=== PATIENT | male | born 1950 | race Caucasian/White ===

== ENCOUNTER → 2021-06-26 10:26 | Outpatient (CLI) | payer OTHER, SELFPAY ==
[2021-06-26 10:36] LABS: Microscopic, Urine URINE MICROSCOPIC (MICROSCOPIC)
[2021-06-26 11:28] LABS: Appearance,Urine CLEAR (Clear); Bilirubin,Urine Negative (Negative); Blood, Urine Negative (Negative); Color,Urine YELLOW (Yellow); Glucose,Urine (UA) Negative (Negative); Ketones,Urine Negative (Negative); Leukocyte Esterase,Urine Negative (Negative); Nitrate,Urine Negative (Negative); PH,Urine 5.5 (5.0-8.5); Protein,Urine Negative (Negative); Urobilinogen,Urine 0.2 EU/dl (0.2)
[2021-06-26 12:49] LABS: Chloride 99 mmol/L (98-107); Potassium 4.2 mmoL/L (3.5-5.1); Sodium 139 mmol/L (136-145)
[2021-06-26 12:51] LABS: Blood Urea Nitrogen 12 mg/dl (9-20); Estimated Glomerular Filt Rate 83 ml/min (>60); GFR (African American) 101 ML/MIN (>60)
[2021-06-26 12:52] LABS: Alanine Aminotransferase 15 U/L (12-78); Albumin/Globulin Ratio 1.5 (1.1-1.8); Alkaline Phosphatase 70 U/L (38-126); Anion Gap 13.2 mEq/L (5-15); Aspartate Amino Transferase 26 U/L (17-59); Bilirubin,Total 0.5 mg/dl (0.2-1.3); Calcium 9.4 mg/dl (8.4-10.2); Carbon Dioxide 31 mmol/L (22.0-30.0); Globulin 2.6 g/dL (1.3-3.2); Glucose 132 mg/dl (74-100); Total Protein,Serum 6.6 g/dl (6.3-8.2)
== END ==
PROVIDERS: Visit Provider Chiropractor
DX: E11.9 Type 2 diabetes mellitus without complications (principal)
CPT/HCPCS: 36415; 80053; 81001

== ENCOUNTER 2022-10-23 13:10 | Emergency (ER) | payer MEDICARE, SELFPAY ==
[2022-10-23 13:20] VITALS: BP 111/64; PULSE 78; RESP 18; TEMP 36.6; O2SAT 98; BMI 29.8
--- NOTE | 2022-10-23 14:06 | XR_ITS ---
PROCEDURE INFORMATION: Exam: XR Left Knee Exam date and time: 10/23/2022 2:23 PM Age: 72 years old Clinical indication: Pain; Knee; Bilateral TECHNIQUE: Imaging protocol: Radiologic exam of the Left knee. Views: 3 views. COMPARISON: No relevant prior studies available. FINDINGS: Bones/joints: Osteopenia. Mild patella Mary[place]. Soft tissues: Normal. IMPRESSION: No evidence of acute osseous injury.
--- NOTE | 2022-10-23 14:06 | EXP.UTC ---
Discharge Plan Disposition Patient Disposition: Home, Self-Care Condition: Good Prescriptions Prescriptions: New methylprednisolone 4 mg Tablets,Dose Pack 4 mg PO DIRECTED Qty: 21 0RF Referrals Follow up/Referrals: Kat Gutiérrez APRN [Primary Care Provider] - See instructions Richar Singleton DO [Staff Physician] - See instructions Activity Restrictions/Add. Instructions Additional Instructions/Restrictions: Rest the extremity, Wear the vijay wrap for compression, Elevate the extremity as tolerated while you are resting. Take the medications as directed. Follow up with Dr. Oliveira (orthopedics). I put in a referral but you should call his office and schedule an appointment. Follow up with your regular doctor. GO TO THE ER FOR ANY WORSENING SYMPTOMS Clinical Impressions Clinical Impression: Left knee pain, Knee effusion, left Instructions Patient Instructions: DI for Knee Effusion, DI for Knee Pain, How to Apply an Elastic Wrap on Knee Discharge ED Provider: Jose Campbell [facility] [place] HPI General Stated complaint: Left knee pain Mode of Arrival: Ambulatory Limitations: No Limitations Time Seen by Provider: 10/23/22 14:06 Description of Symptoms (Recalled from Triage Doc. by RN): PT WITH 2 DAY HX OF LEFT KNEE PAIN/SWELLING WITHOUT INJURY History of Present Illness Provider Complaint: He states that for the past 2 days he has had left knee pain, swelling and stiffness. He denies any injury. He denies any fever or chills. Related Data Previous Rx's Medication Instructions Recorded methylprednisolone 4 mg tablets in 4 mg PO DIRECTED #21 tabs 10/23/22 a dose pack Allergies Allergy/AdvReac Type Severity Reaction Status Date / Time No Known Allergies Allergy Verified 10/23/22 14:15 [facility] Disclaimer: The information contained in this section may have been updated after the patient was seen, as this information can be updated by other users. Social History Smoking Status: Current some day smoker alcohol intake: never current occupational status: retired Travel in the last 8 weeks: None ROS Obtained: Yes All systems reviewed & no additional complaints except as documented Constitutional Constitutional: Denies chills and Denies fever(s) Musculoskeletal Musculoskeletal: Reports as per HPI Integumentary/Breasts Skin/Breast: Denies redness, Denies rash and Denies wounds Neurologic Neurologic: Denies paresthesias Physical Exam General General appearance: alert and in no apparent distress Head Head exam: atraumatic, normocephalic and normal inspection Eye Eye exam: Present normal appearance, PERRL and EOMI ENT ENT exam: Present normal exam, normal oropharynx, mucous membranes moist, TM's normal bilaterally and normal external ear exam Neck Neck exam: Present normal inspection, full ROM and trachea midline; Absent meningismus or lymphadenopathy Chest Chest inspection: Present normal inspection and symmetric chest wall rise; Absent tenderness Respiratory Respiratory exam: Present normal lung sounds bilaterally; Absent respiratory distress Cardiovascular Cardiovascular exam: Present regular rate and normal rhythm; Absent JVD Abdominal Exam Abdominal exam: Present soft and normal bowel sounds; Absent distention, tenderness or guarding Extremities Exam Extremities exam: Present normal capillary refill; Absent calf tenderness Expanded Lower Extremity Exam Left: Hip/Pelvis exam: Present normal inspection and full ROM; Absent tenderness Upper leg exam: Present normal inspection and full ROM; Absent tenderness Knee exam: Present tenderness, swelling, effusion and knee extension intact; Absent abrasion, laceration, ecchymosis, deformity, crepitus, dislocation, erythema, anterior drawer sign, posterior draw sign, pain with valgus, laxity with valgus, pain with varus or laxity with varus Lower leg exam: P
[2022-10-23 14:09] VITALS: BP 136/69; PULSE 74; RESP 20; TEMP 36.5; O2SAT 94; BMI 29.8
[2022-10-23 15:05] VITALS: BP 130/69; PULSE 74; RESP 20; TEMP 36.3; O2SAT 94
== END 2022-10-23 15:05 | disposition home or self-care (01) ==
PROVIDERS: Emergency Provider Nurse Practitioner Family; PCP Nurse Practitioner Family
DX: M25.562 Pain in left knee (principal); M25.462 Effusion, left knee
CPT/HCPCS: 73562; 99213; G0463

== ENCOUNTER → 2023-08-26 13:29 | Outpatient (CLI) | payer MEDICARE, SELFPAY ==
[2023-08-26 15:34] LABS: T4 (Thyroxine) 7.4 ug/dl (5.53-11.0)
[2023-08-26 15:48] LABS: Thyroid Stimulating Hormone 6.37 uIU/mL (0.465-4.68)
[2023-08-28 14:56] LABS: Triiodothyronine (T3) Free 2.4 pg/mL (2.0-4.4)
== END ==
PROVIDERS: Visit Provider Chiropractor
DX: E04.9 Nontoxic goiter, unspecified (principal)
CPT/HCPCS: 36415; 84436; 84443; 84481

== ENCOUNTER 2024-05-15 20:39 | Emergency (ER) | payer MEDICARE, SELFPAY ==
[2024-05-15 20:41] VITALS: BP 152/76; PULSE 70; RESP 18; TEMP 36.6; O2SAT 95; BMI 30.9
--- NOTE | 2024-05-15 20:49 | ED_ITS ---
<Statement entered by Marizol Kay DO - 05/19/24 20:08> I was consulted by the ARPITA, and we discussed the complexity of the problems being addressed. I approved the treatment and management plan for this patient's care in the emergency department, thus performing a substantive portion of the medical decision making. Marizol Kay DO Discharge Plan Disposition Patient Disposition: Home, Self-Care Condition: Good Prescriptions Prescriptions: No Action methylprednisolone 4 mg Tablets,Dose Pack 4 mg PO DIRECTED Qty: 21 0RF Referrals Follow up/Referrals: Provider,Referral, MD [Primary Care Provider] - See instructions Activity Restrictions/Add. Instructions Additional Instructions/Restrictions: Please call my eye doctor in [place] in the morning to establish follow-up. Return to the ER for any worsening signs or symptoms including loss of vision difficulty focusing as needed. Clinical Impressions Clinical Impression: Acute atopic conjunctivitis, left eye Instructions Patient Instructions: DI for Conjunctivitis Print Language Print Language: Maldivian Discharge ED Provider: Marizol Kay General Adult HPI General Chief complaint: Eye Problems Stated complaint: AO 05/15/24 1500 FB left eye Time Seen by Provider: 05/15/24 20:45 History of Present Illness HPI narrative: Patient presents for evaluation of a foreign body to the left eye. Patient was mowing grass and felt something strike his left eye. He had a foreign body sensation and had difficulty keeping his eye open due to the discomfort. His attempted to irrigate his eye but she found no foreign body and as the patient's symptoms persisted he presented to the emergency department for evaluation. Related Data Previous Rx's ?Medication ?Instructions ?Recorded methylprednisolone 4 mg tablets in 4 mg PO DIRECTED #21 tabs 10/23/22 a dose pack Allergies Allergy/AdvReac Type Severity Reaction Status Date / Time No Known Allergies Allergy Verified 10/23/22 14:15 [facility] Disclaimer: The information contained in this section may have been updated after the patient was seen, as this information can be updated by other users. Social History (Updated 10/23/22 @ 20:40 by Jose Campbell APRN) Smoking Status: Current every day smoker alcohol intake: never current occupational status: retired Travel in the last 8 weeks: None ROS Obtained: Yes Systems reviewed as appropriate & no additional complaints except as documented Physical Exam General General appearance: alert and in no apparent distress Eye Eye exam: Present PERRL, EOMI, conjunctival redness and conjunctival injection; Absent discharge, periorbital swelling or periorbital tenderness Neck Neck exam: Present normal inspection, full ROM and trachea midline Respiratory Respiratory exam: Present normal lung sounds bilaterally Cardiovascular Cardiovascular exam: Present regular rate and normal rhythm Neurological Exam Neurological exam: Present alert and oriented X3 Medical Decision Making Daljit Inquiry Pt receiving controlled substance: No Vital Signs: 05/15/24 20:41 05/15/24 21:23 Temperature 97.9 F 97.9 F Temperature Source Oral Oral Pulse Rate 56 L Pulse Rate [Left] 70 Respiratory Rate 18 16 Blood Pressure 122/68 Blood Pressure [Right Arm] 152/76 H Blood Pressure Mean [Right Arm] 101 02 Sat by Pulse Oximetry 95 Oxygen Delivery Method Room Air Room Air Medical Decision Narrative: In summary patient is a 73-year-old male who presents to the emergency department for evaluation of left eye injury. Patient is hemodynamically stable upon arrival, afebrile. Physical exam is remarkable for a left conjunctival injection without any discharge. Exam performed after administration of topical anesthetic reveals no fluorescein uptake of the cornea, his pupils are equal round reactive to light and accommodation bilaterally, and no foreign body found. Differential diagnosis includes conjunctival irritation versus conjunctivitis. Patient did report improvement of the foreign body sensation after topical anesthetic suggesting conjunctival irritation as a cause in the absence of any visible foreign body. Given this patient is appropriate for discharge with strict return precautions and recommendations to follow-up with ophthalmology or optometry in the a.m. and no less than 48 hours for reexamination. Patient return for any worsening signs or symptoms as needed. Critical Care Critical Care Time Critical Care Time: No
[2024-05-15 21:23] VITALS: BP 122/68; PULSE 56; RESP 16; TEMP 36.6; O2SAT 93
== END 2024-05-15 21:26 | disposition home or self-care (01) ==
PROVIDERS: Emergency Provider Emergency Medicine
DX: H10.12 Acute atopic conjunctivitis, left eye (principal)
CPT/HCPCS: 99283